=== PATIENT | male | born 1975 | race Hispanic/Latino ===

== ENCOUNTER 2018-06-04 14:24 | Emergency (ER) | payer BC, OTHER ==
[2018-06-04] MEDS ORDERED: Acetaminophen 500 MG TAB ONE (14:58)
[2018-06-04] MEDS ORDERED: Metoclopramide HCl 10 MG/2 ML VIAL ONE (14:58)
[2018-06-04] MEDS ORDERED: diphenhydrAMINE 50 MG/ML VIAL ONE (14:58)
--- NOTE | 2018-06-04 16:04 | CT ---
HEAD CT WITHOUT CONTRAST: History: Atypical headache. Comparison: None. FINDINGS: No parenchymal hemorrhage. No extraaxial hematoma. No midline shift. Basilar cisterns are patent. Bra in volume is age appropriate. Cortical ovalles white matter differentiation is preserved. Ventricles and sulci are patent and symmetric. Adequate aeration of the sinuses and mastoid air cells. Calvarium is intact. IMPRESSION: No acute intracranial process. POS: [facility]
== END 2018-06-04 16:54 | disposition home or self-care (01) ==
LOC: SCSER 14:24
DX: G43.809 Other migraine, not intractable, without status migrainosus (principal); E11.9 Type 2 diabetes mellitus without complications; I10 Essential (primary) hypertension; Z79.84 Long term (current) use of oral hypoglycemic drugs; Z79.899 Other long term (current) drug therapy
CPT/HCPCS: 70450; 96365; 96375; J1200; J2765